=== PATIENT | female | born 1985 | race Two or more races ===

== ENCOUNTER 2018-03-20 23:09 | Emergency (ER) | payer SELFPAY ==
[~2018-03-20] VITALS: Ht 162.6 cm; Wt 65.8 kg
[2018-03-21 00:06] VITALS: BP 125/75
[2018-03-21] MEDS ORDERED: LIDOCAINE 1%-EPI 1:100,000 20 ML VIAL ONE (00:18)
[2018-03-21] MEDS ORDERED: LIDOCAINE 1%-EPI 1:100,000 20 ML VIAL TP ONE (00:30)
--- NOTE | 2018-03-21 02:35 | NUR ---
WOUND CARE DONE. SUTURES INTACT AND CLEAN. Patient discharged to home in stable condition. Written and verbal after care instructions given. Patient verbalizes understanding of instruction. Patient is ambulatory with steady gait. vss. nad noted. no further complaints.
== END 2018-03-21 02:42 | disposition home or self-care (01) ==
LOC: ER 23:13
DX: S01.511A Laceration without foreign body of lip, initial encounter (principal); W01.198A Fall on same level from slipping, tripping and stumbling with subsequent striking against other object, initial encounter; Y93.89 Activity, other specified; Y92.89 Other specified places as the place of occurrence of the external cause; Y99.8 Other external cause status
CPT/HCPCS: 40650; 99284; A4606; J3490; Z7610